=== PATIENT | female | born 1990 | race Caucasian/White ===

== ENCOUNTER 2023-03-31 01:30 | Inpatient (IN) | payer BC ==
[2023-03-31 02:06] LABS: AMNISURE ROM TEST POSITIVE
[2023-03-31 02:52] LABS: HEMATOCRIT 33.2 % (35.0-50.0); HEMOGLOBIN 11.1 g/dL (12.0-18.0); MCH 31.1 (27-36); MCHC 33.4 g/dl (30-36); MCV 93.1 fl (81-99); RBC 3.57 M/ul (4.3-5.7); RDW 13.1 (10.5-15.0)
[2023-03-31 03:18] LABS: AMPHETAMINES, URINE NEGATIVE (NEGATIVE); BARBITURATES, URINE NEGATIVE (NEGATIVE); BENZODIAZEPINE, URINE NEGATIVE (NEGATIVE); BUPRENORPHINE, URINE NEGATIVE (NEGATIVE); CANNABINOID, URINE NEGATIVE (NEGATIVE); COCAINE, URINE NEGATIVE (NEGATIVE); ECSTASY, URINE NEGATIVE (NEGATIVE); FENTANYL, URINE NEGATIVE (NEGATIVE); METHADONE, URINE NEGATIVE (NEGATIVE); OPIATES, URINE NEGATIVE (NEGATIVE); OXYCODONE, URINE NEGATIVE (NEGATIVE); PHENCYCLIDINE, URINE NEGATIVE (NEGATIVE)
[2023-03-31 03:27] LABS: ABO O; ANTIBODY SCREEN NEGATIVE; RH POSITIVE
--- NOTE | 2023-03-31 11:33 | PR ---
[facility] [address], [place] [address] Signed Progress Notes IP Datetime Report Generated by CPN: 03/31/2023 11:33 PROGRESS NOTES: [id number] Impression: Normal Progression of Labor; Non-reassuring Heart Rate Procedures: Amnio Infusion Plan: Continue Present Management Informed Consent Obtain: Vaginal Delivery VITAL SIGNS: [id number] Vital Signs: Reviewed; Within Normal Limits EXAM: [id number] Dilatation: 7.0 Effacement: 90 Station: -1 MEMBRANES: [id number] Amniotic Fluid Color: Clear ROM Note: amnisure test collected prior to SVE and sent to lab Comments: S: In room to assess patient due to noted deceleration. Nursing adjusting position. Patient without concerns or complaints. A/P: Patient well. Making cervical change. Will order amnio infusion of 500 cc. Reassess in 2 hours and sooner as needed. FETUS A: [id number] FHR Baseline: 145 Variability: Moderate 6-25bpm Accelerations: 15X15 Decelerations: Late FHR Category: Category II Presentation: Vertex Comments on Fetus A: No sign of acidemia FETUS B: [id number] Signing Physician: Lorri Garnica MD Copies: ~ *Electronically Signed* 03/31/23 1132 LORRI GARNICA MD PATIENT NAME: SHRUTHI HOU PROGRESS NOTE DATE OF : 90 PHYSICIAN: LORRI GARNICA MD RPT #: [id number] REPORT IS CONFIDENTIAL AND NOT TO BE RELEASED WITHOUT AUTHORIZATION
--- NOTE | 2023-03-31 13:35 | PR ---
[facility] [address] [place], [place] [address] Signed Progress Notes IP Datetime Report Generated by CPN: 03/31/2023 13:35 PROGRESS NOTES: [id number] Impression: Normal Progression of Labor Procedures: Amnio Infusion Plan: Continue Present Management Informed Consent Obtain: Vaginal Delivery VITAL SIGNS: [id number] Vital Signs: Reviewed; Within Normal Limits EXAM: [id number] Dilatation: 7.0 Effacement: 100 Station: 0 Contractions: q 1-2 min MEMBRANES: [id number] Amniotic Fluid Color: Clear ROM Note: amnisure test collected prior to SVE and sent to lab Comments: S: Patient well. Resting comfortably in bed. O: AFVSS A/P: Patient well. Will restart pitocin to try to regulate contractions. If contractions continue to be more frequent than q 2min, then will stop pitocin. Will recheck in 2 hours and sooner as needed. FETUS A: [id number] FHR Baseline: 145 Variability: Moderate 6-25bpm Accelerations: 15X15 Decelerations: None FHR Category: Category I Presentation: Vertex Comments on Fetus A: No sign of acidemia FETUS B: [id number] Signing Physician: Lorri Garnica MD *Electronically Signed* 03/31/23 5467 LORRI GARNICA MD PATIENT NAME: SHRUTHI HOU PROGRESS NOTE DATE OF : 90 PHYSICIAN: LORRI GARNICA MD RPT #: [id number] REPORT IS CONFIDENTIAL AND NOT TO BE RELEASED WITHOUT AUTHORIZATION
--- NOTE | 2023-03-31 15:29 | PR ---
[place] [facility] [address] [place], [place] [address] Signed Progress Notes IP Datetime Report Generated by CPN: 03/31/2023 15:29 PROGRESS NOTES: [id number] Impression: Normal Progression of Labor Procedures: Sterile Vag Exam Plan: Continue Present Management Informed Consent Obtain: Vaginal Delivery VITAL SIGNS: [id number] Vital Signs: Reviewed; Within Normal Limits EXAM: [id number] Dilatation: 10.0 Effacement: 100 Station: 0 Contractions: every 2 min MEMBRANES: [id number] Amniotic Fluid Color: Clear ROM Note: amnisure test collected prior to SVE and sent to lab Comments: s: Patient doing well. No concerns or complaints. O: AFVSS SVE: 10/C/+1 A/P: Patient well. Trial pushing not very effective. Will have patient labor down for 30 minutes and begin pushing at that time. Anticipate vagiinal delivery. FETUS A: [id number] FHR Baseline: 145 Variability: Moderate 6-25bpm Accelerations: 15X15 Decelerations: None FHR Category: Category I Presentation: Vertex Comments on Fetus A: No sign of acidemia FETUS B: [id number] Signing Physician: Lorri Garnica MD Copies: ~ *Electronically Signed* 03/31/23 1529 LORRI GARNICA MD PATIENT NAME: SHRUTHI HOU PROGRESS NOTE DATE OF : 90 PHYSICIAN: LORRI GARNICA MD RPT #: [id number] REPORT IS CONFIDENTIAL AND NOT TO BE RELEASED WITHOUT AUTHORIZATION
[2023-04-01 05:18] LABS: HEMATOCRIT 27.7 % (35.0-50.0); HEMOGLOBIN 9.1 g/dL (12.0-18.0); MCH 31.1 (27-36); MCHC 33.1 g/dl (30-36); RBC 2.94 M/ul (4.3-5.7); RDW 13.3 (10.5-15.0)
--- NOTE | 2023-04-02 06:37 | PR ---
[facility] [address] [place], [place] [address] Signed PP Progress Notes Datetime Report Generated by CPN: 04/02/2023 06:37 SUBJECTIVE: [id number] Pain: Within Normal Limits Nausea/Vomiting: Denies Flatus: Yes Bowel Movement: No Vital Signs: [id number] Vital Signs: Reviewed; Within Normal Limits Cardiovascular: Not Done Respiratory: Not Done Abdomen/Uterus: Normal Lochia: Normal Vulva/Perineum: Not Done Breasts: Not Done CVA Tenderness: Not Done Extremities: Normal Incision: Not Applicable Progress: Normal IMPRESSION/PLAN/PROCEDURES: [id number] Impression: Normal Progression Plan: Discharge Procedures: None Progress Notes: S: 32 yo s/p vaginal delivery. PPD #1. Doing well. Denies BREWER, CP, SOB, F/C, N/V, RUQ pain, changes in vision, vaginal discharge. Tolerating regular diet, not yet ambulating, voiding per moreno secondary to labial swelling, pain controlled. O: AFVSS Abd: Soft, appropriately tender. Fundus firm and below umbilicus. Musc: RAYGOZA. No C/C/E. A/P: Patient doing well. Will continue to care. Disposition in house. Likely discharge home tomorrow AM. Signing Physician: Lorri Park MD *Electronically Signed* 04/02/23 0637 LORRI PARK MD PATIENT NAME: SHRUTHI HOU PROGRESS NOTE DATE OF : 90 PHYSICIAN: LORRI PARK MD RPT #: [id number] REPORT IS CONFIDENTIAL AND NOT TO BE RELEASED WITHOUT AUTHORIZATION
== END 2023-04-02 18:05 | disposition home or self-care (01) | DRG 807 ==
LOC: FBCO 01:30 → FBC 02:37
PROVIDERS: ADMIT Obstetrics & Gynecology; ATTEND Obstetrics & Gynecology
PROC: 10E0XZZ Delivery of Products of Conception, External Approach (ICD-10-PCS; principal; 2023-03-31)
PROC: 0KQM0ZZ Repair Perineum Muscle, Open Approach (ICD-10-PCS; 2023-03-31)
PROC: 3E0DXGC Introduction of Other Therapeutic Substance into Mouth and Pharynx, External Approach (ICD-10-PCS; 2023-03-31)
PROC: 3E0R3BZ Introduction of Anesthetic Agent into Spinal Canal, Percutaneous Approach (ICD-10-PCS; 2023-03-31)
PROC: 00HU33Z Insertion of Infusion Device into Spinal Canal, Percutaneous Approach (ICD-10-PCS; 2023-03-31)
PROC: 0UQMXZZ Repair Vulva, External Approach (ICD-10-PCS; 2023-03-31)
PROC: 10H07YZ Insertion of Other Device into Products of Conception, Via Natural or Artificial Opening (ICD-10-PCS; 2023-03-31)
DX: O76 Abnormality in fetal heart rate and rhythm complicating labor and delivery (principal); Z37.0 Single live birth; Z3A.39 39 weeks gestation of pregnancy; Z87.891 Personal history of nicotine dependence; O70.1 Second degree perineal laceration during delivery
CPT/HCPCS: 36415; 80307; 84112; 85027; 86850; 86900; 86901; A9270; J1200; J2795; J3010; J7121

== ENCOUNTER 2024-11-12 17:17 | Inpatient (IN) | payer OTHER ==
[~2024-11-12] VITALS: Ht 162.6 cm; Wt 73.5 kg
[2024-11-13] MEDS ORDERED: CALCIUM CARBONATE 500 MG CHEW PO PRN ×2 (04:15→09:15)
[2024-11-13] MEDS ORDERED: LACTATED RINGER'S 1,000 ML IV PRN (04:15)
[2024-11-13] MEDS ORDERED: LACTATED RINGER'S 1,000 ML IV SCH (04:15)
[2024-11-13] MEDS ORDERED: MAGNESIUM HYDROXIDE/AL HYDROX 30 ML CUP PO PRN ×2 (04:15→09:15)
[2024-11-13 04:31] LABS: MCH 30.9 PG (25.6-32.2); MCHC 33.2 g/dL (32.2-35.5); MCV 92.8 fL (79.4-94.8); RBC 4.05 M/uL (3.93-5.22)
[2024-11-13] MEDS ORDERED: OXYTOCIN/0.9 % SODIUM CHLORIDE 30 UNITS/500 ML BAG IV SCH (04:45)
[2024-11-13 04:51] LABS: AMPHETAMINES, URINE NEGATIVE (NEGATIVE); BARBITURATES, URINE NEGATIVE (NEGATIVE); BENZODIAZEPINE, URINE NEGATIVE (NEGATIVE); CANNABINOID, URINE NEGATIVE (NEGATIVE); COCAINE, URINE NEGATIVE (NEGATIVE); ECSTASY, URINE NEGATIVE (NEGATIVE); FENTANYL, URINE NEGATIVE (NEGATIVE); METHADONE, URINE NEGATIVE (NEGATIVE); OPIATES, URINE NEGATIVE (NEGATIVE); OXYCODONE, URINE NEGATIVE (NEGATIVE); PHENCYCLIDINE, URINE NEGATIVE (NEGATIVE)
[2024-11-13] MEDS ORDERED: ROPIVACAINE 0.2% 200 ML BAG ONE (04:53)
[2024-11-13 05:10] LABS: ABO O; ANTIBODY SCREEN NEGATIVE; RH POSITIVE
[2024-11-13] MEDS ORDERED: LACTATED RINGER'S 500 ML IV PRN (05:30)
[2024-11-13] MEDS ORDERED: ROPIVACAINE 0.2% 200 ML BAG EPIDURAL SCH (05:30)
[2024-11-13] MEDS ORDERED: ePHEDrine sulfate 5 MG/ML SYRINGE IV PRN (05:30)
[2024-11-13] MEDS ORDERED: LACTATED RINGER'S 2,000 ML IV ONE (05:30)
[2024-11-13] MEDS ORDERED: SOD+POT BICARB/CITRIC ACID 2 EA TABLET.EFF ONE (06:15)
[2024-11-13] MEDS ORDERED: LIDOCAINE HCL 1% 30 ML SDV ONE (06:16)
[2024-11-13] MEDS ORDERED: TERBUTALINE SULFATE 1 MG/ML AMP ONE (06:16)
[2024-11-13 06:31] VITALS: BP 118/70
[2024-11-13] MEDS ORDERED: BENZOCAINE 60 ML AEROSOL TOP PRN (09:15)
[2024-11-13] MEDS ORDERED: ACETAMINOPHEN 325 MG TAB PO PRN (09:15)
[2024-11-13] MEDS ORDERED: OXYCODONE/APAP 5/325 TAB PO PRN (09:15)
[2024-11-13] MEDS ORDERED: OXYTOCIN/0.9 % SODIUM CHLORIDE 500 ML IV SCH (09:15)
[2024-11-13] MEDS ORDERED: WITCH HAZEL/GLYCERIN 1 EA PAD TOP PRN (09:15)
[2024-11-13] MEDS ORDERED: HYDROCORTISONE ACETATE 25 MG SUPP PR PRN (09:15)
[2024-11-13] MEDS ORDERED: HYDROCODONE/ACETA 5/325 TAB PO PRN (09:15)
[2024-11-13] MEDS ORDERED: MAGNESIUM HYDROXIDE 30 ML UDC PO PRN (09:15)
[2024-11-13] MEDS ORDERED: IBUPROFEN 600 MG TAB PO PRN (09:15)
[2024-11-13] MEDS ORDERED: SENNOSIDES/DOCUSATE 1 EA TAB PO SCH (21:00)
[2024-11-14 05:48] LABS: MCH 30.7 PG (25.6-32.2); MCHC 32.8 g/dL (32.2-35.5); MCV 93.4 fL (79.4-94.8); RBC 3.49 M/uL (3.93-5.22)
--- NOTE | 2024-11-14 17:41 | PR ---
[facility] [address] [facility] [place] [address] Signed PP Progress Notes Datetime Report Generated by CPN: 11/14/2024 17:41 SUBJECTIVE: [id number] Pain: Within Normal Limits Nausea/Vomiting: Denies Flatus: Yes Bowel Movement: Yes Vital Signs: [id number] Vital Signs: Reviewed; Within Normal Limits Cardiovascular: Normal Respiratory: Normal Abdomen/Uterus: Normal Lochia: Normal Vulva/Perineum: Not Done Breasts: Not Done CVA Tenderness: Normal Extremities: Normal Incision: Not Applicable Progress: Normal Exam Comments: Fundus firm U-2 nontender. Vulvar edema reduced per RN IMPRESSION/PLAN/PROCEDURES: [id number] Impression: Normal Progression Plan: Discharge Progress Notes: Pt seen and examined. Doing well. Ambulating and tolerating full diet. Pain and lochia minimal. Figueroa cath recently removed due to vulvar edema and pt has not yet voided. Needs to void prior to d/c. No other concerns and pt desires d/c home. Reviewed d/c meds (ibuprofen) and plans for pp contraception (undecided). F/U 2 wks Signing Physician: Raciel Gonzalez DO Copies: ~ *Electronically Signed* 11/14/24 6452 RACIEL GONZALEZ (MARYAM) DO PATIENT NAME: SHRUTHI WINKLER PROGRESS NOTE DATE OF : 90 PHYSICIAN: RACIEL GONZALEZ (JD) DO RPT #: [id number] REPORT IS CONFIDENTIAL AND NOT TO BE RELEASED WITHOUT AUTHORIZATION
== END 2024-11-14 20:42 | disposition home or self-care (01) | DRG 807 ==
LOC: FBC 11-13 04:10
PROVIDERS: ADMIT Obstetrics & Gynecology; ATTEND Obstetrics & Gynecology
PROC: 10H07YZ Insertion of Other Device into Products of Conception, Via Natural or Artificial Opening (ICD-10-PCS; principal; 2024-11-13)
PROC: 10D07Z7 Extraction of Products of Conception, Internal Version, Via Natural or Artificial Opening (ICD-10-PCS; 2024-11-13)
PROC: 3E0R3BZ Introduction of Anesthetic Agent into Spinal Canal, Percutaneous Approach (ICD-10-PCS; 2024-11-13)
PROC: 00HU33Z Insertion of Infusion Device into Spinal Canal, Percutaneous Approach (ICD-10-PCS; 2024-11-13)
DX: O48.0 Post-term pregnancy (principal); Z37.0 Single live birth; O32.8XX0 Maternal care for other malpresentation of fetus, not applicable or unspecified; O26.23 Pregnancy care for patient with recurrent pregnancy loss, third trimester; O69.81X0 Labor and delivery complicated by cord around neck, without compression, not applicable or unspecified; O99.02 Anemia complicating childbirth; Z3A.40 40 weeks gestation of pregnancy
CPT/HCPCS: 01960; 36415; 80307; 85027; 86850; 86900; 86901; A9270; J7121